=== PATIENT | male | born 1960 | race Caucasian/White ===

== ENCOUNTER 2021-01-04 09:12 | Outpatient (CLI) | payer OTHER, SELFPAY ==
--- NOTE | 2021-01-04 09:20 | CT_ITS ---
WS: [id number] CT NECK TECHNIQUE: Contrast-enhanced CT of the neck with coronal and sagittal reformatted images. CLINICAL INFORMATION: DYSPHAGIA, LOCALIZED SWELLING MASS AND LUMP NECK COMPARISON: None. DLP: 1407.[address] scans at [facility] use at least one of these dose optimization techniques: automat ed exposure control; mA and/or kV adjustment per patient size (includes targeted exams where dose is matched to clinical indication); or iterative reconstruction. FINDINGS: Parotid glands are normal. Normal submandibular glands. A few prominent submandibular and upper cervi ronnie chain lymph nodes not pathologically enlarged likely reactive. Deep to the palpable marker is a s lightly prominent lymph node measuring 9 x 7 mm. No other suspicious underlying abnormalities. Tongue base is normal. Normal parapharyngeal fat. No evidence of supraglottic or glottic mass. Normal subglottic airway. Lung apices are normal. Partially visualized intracranial contents are normal. Pa ranasal sinuses and mastoid air cells are well aerated. Straightening of the normal cervical lordosis . CT/CT neck w con* [id number] IMPRESSION: 1. Deep to the palpable marker left neck is a slightly prominent lymph node me asuring 9 x 7 mm nonspecific but likely reactive. 2. Additional slightly prominent but not pathologically enlarged submandibular and upper cervical chain lymph nodes 3. Normal salivary glands. 4. No evidence of supraglottic or glottic mass. 5. Paranasal sinuses and mastoid air cells are well aerated.
--- NOTE | 2021-01-04 09:20 | FL_ITS ---
WS: [id number] Barium swallow and esophagram, 01/04/2021 Clinical Data: DYSPHAGIA Comparison: None. Fluoroscopy time: 1.1 min minutes. Findings: The patient swallowed the thick and thin barium, and it flowed through the hypopharynx without hesita tion. No stricture, mass, polyp or erosion was seen. There is no aspiration or penetration. The barium entered the esophagus and there was normal motility throughout. No hiatal hernia, reflux, stricture, polyp, mass, erosion or ulcer was noted. FL/FL barium swallow [id number] Impression: Normal esophagram.
[2021-01-04] MEDS: iohexol 300 mg/mL 100 mL Btl IV (09:37)
== END 2021-01-04 09:13 | disposition home or self-care (01) ==
LOC: RADWPI 09:17
PROVIDERS: PCP Emergency Medicine Emergency Medical Services; Visit Provider Specialist
DX: R13.10 Dysphagia, unspecified (principal); R22.1 Localized swelling, mass and lump, neck
CPT/HCPCS: 70491; 74220; Q9967